=== PATIENT | male | born 1975 | race Caucasian/White ===

== ENCOUNTER → 2016-03-11 | Outpatient (CLI) | payer BC ==
--- NOTE | 2016-03-13 16:14 | SLEEPCENT ---
DATE OF PROCEDURE: 03/11/2016 ORDERED BY: Joanie Seymour Nocturnal polysomnography was performed for the titration of pressure therapy in this patient with obstructive sleep apnea syndrome confirmed by home testing, revealing a respiratory event index of 44.9. For testing, the patient was fit with a 140Fire Simplus full face mask of small size. 4 cm of water pressure were applied to the circuit and the lights were extinguished. 7 hours and 11 minutes of data were reviewed. There were 362 minutes of sleep identified. Sleep latency was prolonged at 34 minutes. Rapid eye movement (REM) latency was normal 76 minutes. Sleep architecture improved with optimal pressure therapy. There was some evidence of REM rebound. Overall sleep efficiency is 85.8% and there were 3 REM periods scored. The patient's EKG showed a sinus rhythm with an average heart rate of 68 beats per minute. EEG showed reasonably normal wave forms for awake and sleep. Respiratory events were found best palliated with continuous positive airway pressure (CPAP) at a pressure of +12. CPAP tolerance was good. Some limb activity was noted but no trains of events. Limb movement arousal index was 5. IMPRESSION: Obstructive sleep apnea syndrome (G47.33). RECOMMENDATION: Nightly use of nasal CPAP 12 cm of water. Carbon Copy: TAMMI Peña
== END | disposition home or self-care (01) ==
LOC: M SLEEP 19:44
PROVIDERS: ATTEND Nurse Practitioner Adult Health
DX: G47.33 Obstructive sleep apnea (adult) (pediatric) (principal)

== ENCOUNTER → 2019-11-01 | Outpatient (REF) | payer BC | LOC: M WUC 17:18 | PROVIDERS: ATTEND Physician Assistant | DX: N39.0 Urinary tract infection, site not specified (principal) ==

== ENCOUNTER → 2019-12-28 | Outpatient (REF) | payer BC | LOC: M LAB REF 16:42 | PROVIDERS: ATTEND Physician Assistant | DX: N39.0 Urinary tract infection, site not specified (principal) ==

== ENCOUNTER → 2020-06-20 | Outpatient (CLI) | payer BC, OTHER ==
[~2020-06-20] MED LIST: ATEN50TA2 PO; ATOR1TAB19 PO; BASA100I SC; CETI5SOL3 PO; FLUTISP; LISI-898 PO; MAGN1CAP PO; METF-839 PO; NOXI1TAB PO; TRUL10IN SC
== END ==
LOC: M LABSMTC 10:08
PROVIDERS: ATTEND Anesthesiology
DX: Z01.818 Encounter for other preprocedural examination (principal); Z11.52 Encounter for screening for COVID-19

== ENCOUNTER 2020-06-25 06:12 | Day surgery (SDC) | payer OTHER ==
[~2020-06-25] VITALS: Ht 185.4 cm; Wt 156.5 kg
[2020-06-25] MEDS ORDERED: LR 1,000 ML IV ONE (07:00)
[2020-06-25] MEDS ORDERED: propofoL 200 MG/20 ML VIAL As Ordered ONE ×2 (07:02→09:48)
[2020-06-25] MEDS ORDERED: ROCURONIUM BROMIDE 50 MG/5 ML VIAL As Ordered ONE ×2 (07:02→08:08)
[2020-06-25] MEDS ORDERED: LIDOCAINE 2% 100MG/5ML SDV (FOR ANES.) As Ordered ONE (07:03)
[2020-06-25] MEDS ORDERED: SUGAMMADEX SODIUM 500 MG/5 ML VIAL (BRIDION) As Ordered ONE ×2 (07:03→09:37)
[2020-06-25] MEDS ORDERED: MIDAZOLAM INJ 2MG/2ML VIAL (J2250 PER 1MG) As Ordered ONE (07:05)
[2020-06-25] MEDS ORDERED: fentaNYL 100 MCG/2 ML INJECTION (J3010) As Ordered ONE (07:06)
[2020-06-25] MEDS ORDERED: BUPIVACAINE HCL 0.25% 30ML VIAL As Ordered ONE (07:14)
[2020-06-25] MEDS ORDERED: HumaLOG INSULIN (NovoLOG) PER UNIT SC ONE ×2 (07:20→11:15)
[2020-06-25] MEDS ORDERED: fentaNYL 100 MCG/2 ML INJECTION (J3010) IV PRN (10:15)
[2020-06-25] MEDS ORDERED: PERCOCET 5MG/325MG TAB PO PRN (10:15)
[2020-06-25] MEDS ORDERED: LR 1,000 ML IV SCH (10:15)
[2020-06-25] MEDS ORDERED: HYDR-3715 PO (10:15)
[2020-06-25] MEDS ORDERED: ACETAMINOPHEN TAB 650MG DOSE (2X325MG) PO PRN (10:15)
[2020-06-25] MEDS ORDERED: METOCLOPRAMIDE INJ 10MG/2ML VIAL (J2765 PER 1) IV PRN (10:15)
[2020-06-25] MEDS ORDERED: NORCO, ANEXSIA 5/325MG TABLET (HYDROcodone/ACETAMINOPHEN) PO PRN (10:15)
[2020-06-25] MEDS ORDERED: ONDANSETRON 4MG/2ML VIAL IV PRN (10:15)
[2020-06-25] MEDS ORDERED: ACETAMINOPHEN *IV* 1,000 MG IV ONE ×2 (10:20)
[2020-06-25] MEDS ORDERED: IBUPROFEN 400MG TAB PO PRN (10:20)
[2020-06-25] MEDS: HYDROMORPHONE HCL 0.5 MG/ 0.5 ML SYRINGE (J1170 PER 1) IV PRN ×4 (10:26→11:10)
[2020-06-25 14:07] VITALS: BP 134/76
--- NOTE | 2020-06-26 09:00 | RO ---
OPERATIVE NOTE DATE OF OPERATION: 06/25/2020 PREOPERATIVE DIAGNOSIS: Umbilical hernia. POSTOPERATIVE DIAGNOSIS: Incarcerated umbilical hernia. PROCEDURE: Robotic assisted laparoscopic repair of incarcerated umbilical with ProGrip mesh. The mesh utilized was ProGrip reference code [id number] and lot number [id number]. SURGEON: Josiah Casanova MD POOL LIFEGUARD: Varsha Simms. Varsha's assistance was necessary for insertion of the robotic trocars, management of the robotic instruments with change of instruments, passage of needles and mesh and closure of the incisions. ANESTHESIA: General. INDICATIONS FOR THE PROCEDURE: The patient is a 44-year-old man, who had developed a small umbilical hernia bulge. This was mildly uncomfortable. He is now for a robotic assisted laparoscopic repair of same. DESCRIPTION OF PROCEDURE: The patient was brought to the operating room and placed on the table in a supine position. He was placed under general endotracheal anesthesia. The patient's abdomen was prepped and draped in a sterile fashion. 25% Marcaine was infiltrated at the trocar sites as needed. A short transverse incision was made in the left upper quadrant. A Veress needle was inserted; and after a positive hanging drop test, the abdomen was inflated with Co2 gas. An 8 mm robotic port was placed over the scope and advanced through the abdominal wall without difficulty. Insufflation continued. Initial examination showed no evidence of trocar or Veress needle injury. There was some omentum that appeared to be entrapped within his hernia. Two additional 8 mm ports were placed on the left side of the abdomen, appropriately spaced. The patient was rolled slightly to the right and placed in a slight Trendelenburg position to level the abdomen. The patient cart of Habboi XI robot was brought into position and the robotic arm was docked to the endoscope port, which was the center port. The endoscope was inserted and targeting took place on the hernia. Two additional arms were then docked leaving one arm un-utilized. A cauterizing scissor and fenestrated bipolar were utilized. I then moved to the control console to proceed with the operation. I created a flap of peritoneum and preperitoneal fat beginning at the left edge of the preperitoneal fat and working across the midline to the right edge of the preperitoneal fat. As the hernia was encountered with some external pressure from Varsha Simms, I was able to reduce the omentum into the abdomen and the hernia sac was then reduced as well, though there were several small defects along the midline in the peritoneum. Inspection of the hernia defect revealed an approximately 1.5 to 2 cm, somewhat oval, longitudinally oriented facial defect. This was closed with a running suture of 1-0 STRATAFIX. A 7 cm round patch was fashioned from the ProGrip identified previously. This was inserted into the abdomen and placed over the sutured fascial defect. This was then sutured circumferentially with a running suture of 2-0 V-loc suture. The peritoneal flap was then closed with a running suture of V-loc and the defects along the midline were closed using a running suture of 3-0 Vicryl. Inspection showed no evidence of any significant bleeding. The robotic instruments were removed. The robot was un-docked and withdrawn. The abdomen was deflated and the trocars were all removed. Varsha Simms proceeded to close the skin incisions with buried sutures of 4-0 Vicryl and Steri-Strips. Light dressings were applied. The patient tolerated the procedure well without apparent complications. He was awakened in the operating room, extubated and moved to the recovery room in stable condition.
== END 2020-06-25 14:21 | disposition home or self-care (01) ==
LOC: M SDC 06:12
PROVIDERS: ATTEND Surgery
DX: K42.0 Umbilical hernia with obstruction, without gangrene (principal); I10 Essential (primary) hypertension; E78.00 Pure hypercholesterolemia, unspecified; M17.11 Unilateral primary osteoarthritis, right knee; M54.9 Dorsalgia, unspecified; G47.30 Sleep apnea, unspecified; E11.9 Type 2 diabetes mellitus without complications; E66.9 Obesity, unspecified; Z68.42 Body mass index [BMI] 45.0-49.9, adult; Z88.8 Allergy status to other drugs, medicaments and biological substances; Z79.899 Other long term (current) drug therapy; Z79.4 Long term (current) use of insulin
CPT/HCPCS: 49653; C1781; J0131; J1170; J2250; J3010; S2900

== ENCOUNTER → 2020-08-21 | Outpatient (CLI) | payer OTHER ==
[~2020-08-21] MED LIST changes: +HYDR-3715 PO
--- NOTE | 2020-08-22 07:18 | REP ---
INDICATION: BENIGN PROSTATIC HYPERPLASIA WITH LOWER URINARY TR COMPARISON: None TECHNIQUE: Real time B-mode ultrasound examination using curved array transducer. FINDINGS: Bladder is normal in appearance without wall thickening or mass lesion. Bilateral ureteral jets are identified. Prostate gland measures 2.9 x 1.7 x 3.4 cm (9 cc). Prevoid bladder measures 13.5 x 8.1 x 7.4 cm (528 cc). Postvoid bladder measures 5.5 x 4.1 x 3.2 cm (47 cc). Postvoid residual: 9% IMPRESSION: 1. Normal bladder ultrasound. <Electronically signed by Juan J Jean > 08/22/20 [id number]
--- NOTE | 2020-08-22 07:31 | REP ---
INDICATION: R/O OUTLET OBSTRUCTION VS MASS COMPARISON: None TECHNIQUE: Real time palmer scale ultrasound examination using curved array transducer. FINDINGS: Right kidney measures 12.1 x 7.0 x 6.1 cm and includes 8.2 cm lower pole simple benign appearing cyst. No hydronephrosis, nephrolithiasis, or renal mass lesion. Left kidney measures 15.5 x 6.6 x 7.3 cm without hydronephrosis, nephrolithiasis, cystic or renal mass lesion. IMPRESSION: 8.2 cm benign lower pole right renal cyst. Otherwise normal renal ultrasound. <Electronically signed by Juan J Jean > 08/22/20 [id number]
== END ==
LOC: M RAD 14:30
PROVIDERS: ATTEND Nurse Practitioner Family
DX: N40.1 Benign prostatic hyperplasia with lower urinary tract symptoms (principal)

== ENCOUNTER → 2020-09-16 | Outpatient (CLI) | payer OTHER ==
[~2020-09-16] MED LIST changes: -LISI-898 PO; +LISI5TAB11 PO
== END ==
LOC: M SLEEP 20:00
PROVIDERS: ATTEND Internal Medicine Pulmonary Disease
DX: G47.33 Obstructive sleep apnea (adult) (pediatric) (principal)

== ENCOUNTER → 2020-12-17 | Outpatient (CLI) | payer OTHER ==
[~2020-12-17] MED LIST changes: +LISI-898 PO; -LISI5TAB11 PO
--- NOTE | 2020-12-17 12:28 | REP ---
INDICATION: RE-EVAL RENAL CYST, IMCOMPLETE EMPTYING COMPARISON: 08/21/2020 TECHNIQUE: Real time palmer scale ultrasound examination using curved array transducer. FINDINGS: Right kidney measures 15.0 x 7.1 x 6.4 cm and includes 7.8 x 6.6 x 7.2 cm midpole cyst. No hydronephrosis or nephrolithiasis. Left kidney measures 15.0 x 5.5 x 6.9 cm and appears normal. Bladder is unremarkable. IMPRESSION: 1. Simple right renal cyst again noted. <Electronically signed by Juan J Jean > 12/17/20 [id number]
== END ==
LOC: M RAD 12:00
PROVIDERS: ATTEND Nurse Practitioner Family
DX: N28.1 Cyst of kidney, acquired (principal)

== ENCOUNTER → 2021-02-11 | Outpatient (CLI) | payer OTHER ==
[~2021-02-11] MED LIST changes: +PROHANCE 279.3MG/ML 15ML VIAL As Ordered ONE; +PROHANCE 279.3MG/ML 5ML VIAL As Ordered ONE
== END ==
LOC: M RAD 15:52
PROVIDERS: ATTEND Specialist
DX: Z71.2 Person consulting for explanation of examination or test findings (principal)

== ENCOUNTER → 2021-03-13 | Outpatient (CLI) | payer OTHER ==
[~2021-03-13] MED LIST changes: -LISI-898 PO; +LISI5TAB11 PO
== END ==
LOC: M RAD 15:31
PROVIDERS: ATTEND Specialist
DX: I89.0 Lymphedema, not elsewhere classified (principal)

== ENCOUNTER → 2021-03-31 | Outpatient (CLI) | payer OTHER ==
[~2021-03-31] MED LIST changes: -PROHANCE 279.3MG/ML 15ML VIAL As Ordered ONE; -PROHANCE 279.3MG/ML 5ML VIAL As Ordered ONE
== END ==
LOC: M RAD 11:43
PROVIDERS: ATTEND Physician Assistant
DX: N48.6 Induration penis plastica (principal)

== ENCOUNTER → 2021-11-06 | Outpatient (REF) | payer OTHER | LOC: M LAB REF 20:28 | PROVIDERS: ATTEND Physician Assistant | DX: J06.9 Acute upper respiratory infection, unspecified (principal) ==

== ENCOUNTER → 2023-04-02 | Outpatient (CLI) | payer OTHER, MEDICARE | LOC: M SOG 08:04 | PROVIDERS: ATTEND Orthopaedic Surgery | DX: M54.50 Low back pain, unspecified (principal) ==

== ENCOUNTER 2023-10-06 19:00 | Emergency (ER) | payer MEDICAID, OTHER ==
[~2023-10-06] VITALS: Ht 185.4 cm; Wt 146.4 kg
[2023-10-06] MEDS ORDERED: METF-838 PO (20:06)
[2023-10-06 20:51] LABS: BASO % 0.4 % (0.0-1.0); EOS # 0.2 10^3/uL (0.0-0.5); EOS % 1.8 % (0.0-3.0); HEMATOCRIT 41.2 % (42.0-52.0); HEMOGLOBIN 13.3 g/dl (13.5-17.5); LYMPH % 23.1 % (24.0-44.0); MEAN CORPUSCULAR HEMOGLOBIN 27.1 pg (27.0-33.0); MEAN CORPUSCULAR HGB CONC 32.3 g/dl (32.0-36.5); MEAN CORPUSCULAR VOLUME 84.1 fl (80.0-96.0); MONO # 0.7 10^3/uL (0.0-0.8); MONO % 8.2 % (2.0-8.0); NEUTROPHILS # 5.6 10^3/uL (1.5-8.5); NEUTROPHILS % 66.1 % (36.0-66.0); PLATELET COUNT, AUTOMATED 214 10^3/uL (150-450); WHITE BLOOD COUNT 8.5 10^3/uL (4.0-10.0)
[2023-10-06 20:56] LABS: ERYTHROCYTE SEDIMENTATION RATE 24 mm/hr (0-20)
[2023-10-06 21:16] LABS: BLOOD UREA NITROGEN 16 MG/DL (9-23); CALCIUM LEVEL 9.2 MG/DL (8.5-10.1); CARBON DIOXIDE LEVEL 31 MMOL/L (20-31); CHLORIDE LEVEL 109 MMOL/L (98-107); GLOMERULAR FILTRATION RATE > 60.0 (>56); GLUCOSE, FASTING 105 MG/DL (60-100); POTASSIUM SERUM 4.1 MMOL/L (3.5-5.1); SODIUM LEVEL 144 MMOL/L (136-145)
[2023-10-06 23:46] VITALS: BP 151/71; TEMP 97.8; O2SAT 97
[2023-10-06] MEDS ORDERED: DOXY-323 PO (23:46)
[2023-10-06] MEDS: DOXYCYCLINE HYCLATE 100MG TABLET PO ONE (23:51)
== END 2023-10-07 00:05 | disposition home or self-care (01) ==
LOC: M ED 19:00
DX: E11.621 Type 2 diabetes mellitus with foot ulcer (principal); I10 Essential (primary) hypertension; E78.5 Hyperlipidemia, unspecified; Z88.8 Allergy status to other drugs, medicaments and biological substances; Z79.2 Long term (current) use of antibiotics; Z79.4 Long term (current) use of insulin; Z79.84 Long term (current) use of oral hypoglycemic drugs; Z79.899 Other long term (current) drug therapy

== ENCOUNTER → 2024-11-27 | Outpatient (CLI) | payer OTHER ==
[~2024-11-27] MED LIST changes: +DOXY-441 PO; +METF-838 PO
== END ==
LOC: M RAD 11:03
PROVIDERS: ATTEND Physician Assistant Medical
DX: N39.0 Urinary tract infection, site not specified (principal)